=== PATIENT | male | born 1990 | race Two or more races ===

== ENCOUNTER 2024-02-09 13:51 | Emergency (ER) | payer MEDICAID ==
[~2024-02-09] VITALS: Ht 175.3 cm; Wt 75.0 kg
[2024-02-09 13:59] VITALS: BP 139/74; PULSE 76; RESP 18; TEMP 97.9; O2SAT 99
== END 2024-02-09 16:21 | disposition home or self-care (01) ==
LOC: EMS 13:51
DX: S92.412A Displaced fracture of proximal phalanx of left great toe, initial encounter for closed fracture (principal); F12.90 Cannabis use, unspecified, uncomplicated; F17.210 Nicotine dependence, cigarettes, uncomplicated; W22.8XXA Striking against or struck by other objects, initial encounter; Y93.89 Activity, other specified; Y92.89 Other specified places as the place of occurrence of the external cause; Y99.8 Other external cause status
CPT/HCPCS: 99283